=== PATIENT | male | born 1945 | race Caucasian/White ===

== ENCOUNTER 2020-11-24 22:59 | Inpatient (IN) | payer OTHER, SELFPAY ==
[~2020-11-24] VITALS: Ht 165.1 cm; Wt 40.8 kg
[2020-11-24 22:59] VITALS: BP_SYST 143
[~2020-11-24 22:59] MED LIST: FINA5TAB3 PO; LEVO500T89 PO; TAMS-11 PO
--- NOTE | 2020-11-24 23:01 | NUR ---
Patient to ER bed 7 to gown for evaluation. Side rails up.
--- NOTE | 2020-11-24 23:02 | NUR ---
Patient BIB by family from home. C/O fall x today. Per patient's family reported, patient fell off the bed, denies head injury, no LOC, A/O,X4, skin pale, dry, no wound, place patient on chemical plant technical director and pulse ox, and STAT EKG at bedside.
--- NOTE | 2020-11-24 23:02 | NUR ---
MAVERICK Bull at bedside examining patient.
--- NOTE | 2020-11-24 23:06 | NUR ---
Called patient's family, unable to provide home medication and history.
[2020-11-24] MEDS ORDERED: LR 1,000 ML IV ONE (23:15)
[2020-11-24 23:39] LABS: BASOPHILS # (AUTO) 0.1 K/uL (0.0-0.2); BASOPHILS % (AUTO) 0.7 % (0.0-2.0); HEMOGLOBIN 14.6 g/dL (14.0-18.0); LYMPHOCYTES # (AUTO) 0.4 K/uL (1.0-5.5); LYMPHOCYTES % (AUTO) 4.3 % (20.5-51.5); MEAN CORPUSCULAR HEMOGLOBIN 29 pg (27-31); MEAN CORPUSCULAR HGB CONC 32 % (32-36); MEAN CORPUSCULAR VOLUME 91 fL (79.0-98.0); MONOCYTES # (AUTO) 0.4 K/uL (0.0-1.0); MONOCYTES % (AUTO) 3.8 % (1.7-9.3); NEUTROPHILS # (AUTO) 8.9 K/uL (1.8-7.7); NEUTROPHILS % (AUTO) 91.2 % (40.0-70.0); PLATELET COUNT (AUTO) 374 K/uL (130-430); RED BLOOD CELL COUNT(AUTO) 4.97 MIL/uL (4.2-6.2); RED CELL DISTRIBUTION WIDTH 15.5 % (9.0-15.0); WHITE BLOOD COUNT (AUTO) 9.7 K/uL (4.8-10.8)
--- NOTE | 2020-11-24 23:40 | NUR ---
D/C old valle cath # 16 FR Valle catheter with use of sterile technique. Immediate return of 150 cc Joanne, cloudy urine noted. Bedside drainage bag placed below level of bladder. Urine sample collected and sent to lab. Pt tolerated procedure well. Patient arrived with valle in place, changed due to standard of practice prior to admission. Patient unable to toilet self.
--- NOTE | 2020-11-24 23:48 | NUR ---
CXR at bedside.
[2020-11-24 23:50] LABS: ANION GAP 17 (5-15); CHLORIDE 111 mmol/L (98-107); CREATININE 1.91 mg/dL (0.55-1.30); GLUCOSE 128 mg/dL (70-99); POTASSIUM 3.9 mmol/L (3.5-5.1); SODIUM SERUM 154 mmol/L (136-145); UREA NITROGEN, BLOOD 82 mg/dL (8-21)
[2020-11-24 23:59] LABS: ALANINE AMINOTRANSFERASE 15 U/L (12-78); ASPARTATE AMINOTRANSFERASE 25 U/L (10-37); BILIRUBIN,DIRECT 0.4 mg/dL (0.0-0.3); LIPASE 208 U/L (73-393); TOTAL BILIRUBIN 0.9 mg/dL (0.0-1.0)
[2020-11-25 00:03] LABS: CALCIUM 12.1 mg/dL (8.4-11.0)
--- NOTE | 2020-11-25 00:03 | NUR ---
Patient transported to radiology via gurney, accompanied by RT and EMT.
[2020-11-25 00:16] LABS: PROTHROMBIN TIME 10.4 SECS (9.5-12.5)
[2020-11-25 00:24] LABS: FREE T4 (FREE THYROXINE) 1.5 ng/dl (0.8-1.5); THYROID STIMULATING HORMONE 2.81 uIu/mL (0.36-3.74)
--- NOTE | 2020-11-25 00:35 | NUR ---
Returned from radiology via gurney with, RT and EMT.
--- NOTE | 2020-11-25 00:37 | NUR ---
ER Dr. Woodruff at bedside examining patient.
--- NOTE | 2020-11-25 00:42 | NUR ---
Empty urine bag, urine 700 ML/ Joanne, cloudy.
--- NOTE | 2020-11-25 00:50 | NUR ---
Swabs COVID-19 and send to lab.
[2020-11-25 00:52] LABS: BILIRUBIN,URINE 1+ (NEGATIVE); BLOOD, URINE 3+ (NEGATIVE); COLOR,URINE YELLOW (YELLOW); GLUCOSE,URINE NEGATIVE (NEGATIVE); KETONES,URINE 1+ (NEGATIVE); LEUKOCYTE ESTERASE ,URINE 2+ (NEGATIVE); NITRITE, URINE NEGATIVE (NEGATIVE); PROTEIN URINE 1+ (NEGATIVE); UROBILINOGEN,URINE 0.2 (0.2-1.0)
[2020-11-25 01:01] LABS: CLARITY/URINE HAZY (CLEAR)
[2020-11-25] MEDS ORDERED: D5/0.45 NS 1,000 ML IV SCH (01:30)
[2020-11-25] MEDS ORDERED: cefTRIAXone 1 GM IVPB PREMIX 50 ML IV ONE (01:45)
[2020-11-25] MEDS ORDERED: DILTIAZEM HCL 25 MG/5 ML VIAL IVP ONE (01:45)
[2020-11-25 01:46] LABS: BACTERIA,URINE MODERATE /HPF (None Seen); RBC,URINE 20-50 /HPF (0-3); WBC,URINE 20-50 /HPF (0-3)
--- NOTE | 2020-11-25 01:58 | NUR ---
Patient will be admitted to care of Dr. Segal. Admitted to TELE unit. Will go to room 132C. Belongings list completed. Complete and up to date summary report printed. SBAR report to be given at bedside with opportunity for questions.
--- NOTE | 2020-11-25 02:23 | NUR ---
ADMISSION NOTE Received patient from ER via elva, received report from ALISSA Vail. Patient admitted with diagnosis of Renal failure and uti. Patient oriented to hospital routine, call light, toileting and safety-patient verbalized understanding.
[2020-11-25 03:01] VITALS: BP_SYST 127
--- NOTE | 2020-11-25 03:26 | NUR ---
RN ROUNDS Patient awake, on room air, vitals stable, afib on tele monitor, denies any pain at this time, IV line to left forearm intact and patent, started on IV fluids, hygiene care provided, wound pictures taken, patient given hs snack, tolerated well, valle catheter secured and to gravity, draining cloudy, yellow urine, repositioned and turned with pillow support, fall precautions in place.
--- NOTE | 2020-11-25 06:18 | NUR ---
RN ROUNDS PATIENT AWAKE, NO FACIAL GRIMACING NOTED FOR PAIN, IV LINE REMAINS INTACT AND PATENT, IVF CONTINUES TO INFUSE. AUSTIN CATHETER SECURED AND TO GRAVITY, PATIENT REPOSITIONED WITH PILLOW SUPPORT, CALL LIGHT WITHIN REACH, FALL AND SAFETY MEASURES MAINTAINED THROUGH OUT THE SHIFT.
--- NOTE | 2020-11-25 07:50 | NUR ---
Opening note Patient is sitting up in bed a&O x1, reorient on place and event. IV is infusing, no signs or symptoms of infiltration. Attempted to educate on plan of care, patient did not verbalize understanding, will continue to reinforce teaching. Brown is draining by gravity, secured, clean dry and intact. Bed is in lowest position, call light within reach, fall and aspiration precautions are in place. Will continue to monitor.
[2020-11-25 08:15] VITALS: BP_SYST 109
--- NOTE | 2020-11-25 08:19 | NUR ---
RN note Spoke to Dr. Segal regarding cardiac consults. MD ordered cardiac consult with Dr. Alondra Segal. Will place order and follow up.
[2020-11-25] MEDS ORDERED: HYDROcodone/ACETAMIN 5-325 MG TAB (NORCO/ VICODIN) PO PRN (10:45)
[2020-11-25] MEDS ORDERED: ONDANSETRON HCL 4 MG/2 ML VIAL IVP PRN (10:45)
[2020-11-25] MEDS ORDERED: ACETAMINOPHEN 325 MG TABLET PO PRN (10:45)
[2020-11-25] MEDS ORDERED: HYDROcodone/ACETAMIN 10-325 MG TAB PO PRN (10:45)
[2020-11-25] MEDS ORDERED: NALOXONE HCL 0.4 MG/ML AMP (NARCAN) IVP PRN ×2 (10:45)
[2020-11-25] MEDS ORDERED: LORazepam 2 MG/ML VIAL IVP PRN (10:45)
[2020-11-25] MEDS ORDERED: TAMSULOSIN HCL 0.4 MG CAP PO ONE (11:00)
[2020-11-25] MEDS ORDERED: FINASTERIDE 5 MG TABLET (PROSCAR) PO ONE (11:00)
--- NOTE | 2020-11-25 12:01 | NUR ---
LORIN notes: ROOM SERVICE SUPERVISOR was referred by LISSETH to see patient for DCP. ROOM SERVICE SUPERVISOR phoned pt's daughter, Portia @ [phone]. Per Portia, pt is a 75 y/o male who came in for a fall. Portia stated patient lives between her two daughters, Portia and Kaylie. Pt's , who is also sick lives with their son, Mitchell. Pt is independent with his ADL's and at times utilizes a walker to ambulate. Per Portia, pt "walks slow" and stated that in the last 6 months, pt's appetite has decreased. Per Portia, pt does not have any history of mental health and hx of ETOH. Per Portia, pt receives SSI of $1200/month and Portia takes care of the finances and no other resources received. If patient discharges to SNF or , the family does not have a preference. ROOM SERVICE SUPERVISOR emailed [facility] offices (for calfresh, etc) and [facility] resources to [email or web address] Addendum: 11/25/20 at 1417 by Ronald Wilkes MSW ROOM SERVICE SUPERVISOR received a referral from to see patient for FTT/APS. ROOM SERVICE SUPERVISOR phoned Alie regarding the referral who stated that the patient came in via ED in a poor condition. Pt appeared to have not showered and "dirty". SS informed Alie MAXWELL that STEPHANIE RN should have reported APS. SS had a conversation with pt's daughter Portia earlier, SS does not feel that there was signs of neglect or abuse that might warrant an APS report. Elizabeth CM updated.
--- NOTE | 2020-11-25 12:10 | NUR ---
Nutrition Update Feng Scale 16 noted. Pt admitted for renal failure/UTI. Diet: renal BMI: 16.5 kg/m2 RD to follow per nutrition care standards.
[2020-11-25] MEDS: D5/0.45 NS 1,000 ML IV SCH ×2 (12:11→23:53)
[2020-11-25 13:16] VITALS: BP_SYST 101
--- NOTE | 2020-11-25 13:30 | NUR ---
social service late entry due to pt's care received call from ady group social worker regarding social service consult. informed ady that reported by ALISSA SOTO rn night nurse during morning report to this RN/gracy RN that pt came in poor condition to ER . pt appeared dirty/not showered as per night ALISSA SOTO.mental health social worker ADY informed.group social worker to follow up.
--- NOTE | 2020-11-25 15:00 | NUR ---
CONSULTATION PAGE CALLED CONSULT FOR DR ESQUEDA, COVERING IS DR SLADE {BOONE) AND ALFREDO HUMPHREY CALLED CONSULT FOR DR CANDY EVANS (BIANCA) AND ALFREDO SORIANO
[2020-11-25 16:20] VITALS: BP_SYST 100
--- NOTE | 2020-11-25 19:00 | NUR ---
Closing note Patient is sitting up in bed a&O x3 easily reoriented. IV is infusing, no signs or symptoms of infiltration. All needs were met. Brown is draining by gravity, secured, clean dry and intact. Bed is in lowest position, call light within reach, fall and aspiration precautions are in place. Will endorse report to warehouse shift supervisor.
--- NOTE | 2020-11-25 19:15 | NUR ---
REPORT RECEIVED FROM DAY SHIFT NURSE.
[2020-11-25 20:00] VITALS: BP_SYST 134
--- NOTE | 2020-11-25 23:10 | NUR ---
IV SITE IN LFA NOTED TO BE INFILTRATED AND THE ANGIOCATH WAS REMOVED INTACT. PRESSURE DRESSING WAS APPLIED TO THE SITE. NEW IN LINE WAS STARTED IN LFA WITH ANGIOCATH 22G.
[2020-11-26 00:26] VITALS: BP_SYST 94
[2020-11-26] MEDS: cefTRIAXone 1 GM IVPB PREMIX 50 ML IV SCH (02:08)
[2020-11-26 07:05] LABS: BASOPHILS % (AUTO) 0.1 % (0.0-2.0); EOSINOPHILS # (AUTO) 0.1 K/uL (0.0-0.4); EOSINOPHILS % (AUTO) 0.7 % (0.0-4.0); HEMATOCRIT 33.1 % (36-54); HEMOGLOBIN 11.1 g/dL (14.0-18.0); LYMPHOCYTES # (AUTO) 0.7 K/uL (1.0-5.5); LYMPHOCYTES % (AUTO) 8.5 % (20.5-51.5); MEAN CORPUSCULAR HEMOGLOBIN 30 pg (27-31); MEAN CORPUSCULAR HGB CONC 33 % (32-36); MEAN CORPUSCULAR VOLUME 89 fL (79.0-98.0); MONOCYTES # (AUTO) 0.4 K/uL (0.0-1.0); MONOCYTES % (AUTO) 5.6 % (1.7-9.3); NEUTROPHILS # (AUTO) 6.8 K/uL (1.8-7.7); NEUTROPHILS % (AUTO) 85.1 % (40.0-70.0); PLATELET COUNT (AUTO) 224 K/uL (130-430); RED BLOOD CELL COUNT(AUTO) 3.71 MIL/uL (4.2-6.2); RED CELL DISTRIBUTION WIDTH 15.3 % (9.0-15.0)
[2020-11-26 07:37] LABS: ALANINE AMINOTRANSFERASE 11 U/L (12-78); ANION GAP 6 (5-15); ASPARTATE AMINOTRANSFERASE 19 U/L (10-37); CALCIUM 10.2 mg/dL (8.4-11.0); CHLORIDE 110 mmol/L (98-107); CREATININE 0.99 mg/dL (0.55-1.30); GLUCOSE 95 mg/dL (70-99); PHOSPHORUS 1.1 mg/dL (2.7-4.5); POTASSIUM 3.2 mmol/L (3.5-5.1); SODIUM SERUM 146 mmol/L (136-145); TOTAL BILIRUBIN 0.2 mg/dL (0.0-1.0); UREA NITROGEN, BLOOD 48 mg/dL (8-21)
--- NOTE | 2020-11-26 07:50 | NUR ---
OPENING NOTES: PATIENT SITTING IN BED WHILE EATING BREAKFAST. ALERT, AWAKE,AND ORIENTED X 3. NO SIGNS OF ACUTE DISTRESS NOTED. IV PATENT WITH NO SIGNS OF INFILTRATION. AUSTIN CATHETER DRAINING BY GRAVITY. SAFETY AND FALL PRECAUTION REINFORCED. CALL LIGHT WITHIN REACH.
[2020-11-26 08:02] VITALS: BP_SYST 138
[2020-11-26 08:12] LABS: C-REACTIVE PROTEIN QUANT 2.6 mg/dL (0-0.5)
[2020-11-26] MEDS: FINASTERIDE 5 MG TABLET (PROSCAR) PO SCH (09:17)
[2020-11-26] MEDS: TAMSULOSIN HCL 0.4 MG CAP PO SCH (09:17)
[2020-11-26] MEDS: D5/0.45 NS 1,000 ML IV SCH ×2 (09:23→16:45)
[2020-11-26] MEDS ORDERED: NA PHOS 30 MM in NS 250 ML IV ONE ×2 (09:30→14:00)
[2020-11-26] MEDS ORDERED: MAGNESIUM SULFATE IN WATER 100 ML IV ONE (09:30)
[2020-11-26 09:38] LABS: ERYTHROCYTE SEDIMENTATION RATE 25 MM/HR (0-15)
[2020-11-26 11:30] VITALS: BP_SYST 151
--- NOTE | 2020-11-26 11:30 | NUR ---
PATIENT REFUSED TREATMENT DUE TO NOT FEELING WELL. PLAN: ATTEMPT TOMORROW.
[2020-11-26 15:34] VITALS: BP_SYST 142
--- NOTE | 2020-11-26 16:04 | NUR ---
WOUND EVALUATION: Wound Consult received from Dr. Nabor Segal. Thank you, Dr. Segal, for the consult. Patient received in a Norwood Bed with an Atmos-Air 9000 mattress, awake, alert, confused. Patient is able to turn in bed slowly with some assist. Feng Score is a 12. Past Medical History: Fall or Syncope, Urinary Tract Infection, Anemia, Leukocytosis, Hypokalemia, Hypoalbuminemia, severe Protein-Calorie Malnutrition, Renal Failure with unknown Renal baseline. Patient admitted to the emergency department and work-up found Atrial Fibrillation with rapid ventricular rate, Hyponatremia, Acute Renal Insufficiency, failure to thrive, Cachexia. Recent Labs: WBC 9.7, RBC 4.97, hemoglobin 14.6, hematocrit 45.0, sodium 154, chloride 111, BUN 82, creatinine 1.91, glucose 128, POC glucose 119, calcium 12.1, albumin 3.0, PTT 24.6. Microbiology: Blood culture results x2 in progress. Urine culture results in progress. Intrinsic factors that delay wound healing: COPD, Hypoalbuminemia. Extrinsic factors that delay wound healing: Decreased mobility. Wound Assessment: 1. Right Upper Outer Sacral area: Unstageable pressure ulcer, present on admission. Wound bed has 90% black tissue, 10% red tissue. No odor, scant yellow sanguineous drainage. Surrounding tissue has blanchable red erythema. Wound measures 2.9 cm x 3.0 cm. Recommend: Cleanse wound with normal saline. Apply moisture barrier cream to periwound. Apply Venelex ointment to wound bed. Cover site with foam dressing. Perform wound care daily, and as needed for dressing soiling or dislodgment. 2. Right Buttock near Ischium: Dry scab, present on admission. Scab fell off during site cleansing, revealing pink scar tissue. Recommend: Cleanse site with mild soap and water. Apply moisture barrier cream to site qid and prn for soiling. 3. Left Buttock near Ischium: Stage II pressure ulcer, present on admission. Wound bed has 100% red tissue. No odor, no drainage. Periwound intact. Wound measures 0.7 cm x 0.5 cm. Recommend: Cleanse wound with normal saline. Apply moisture barrier cream to periwound. Apply Venelex ointment to wound bed. Cover site with foam dressing. Perform wound care daily, and as needed for dressing soiling or dislodgment. 4. Coccygeal area: Scar tissue with blanchable redness, present on admission. Skin tear present on left side with 100% pink tissue. No odor, no drainage. Skin tear measures 0.9 cm x 0.2 cm. Recommend: Cleanse skin tear and surrounding tissues with normal saline. Apply moisture barrier cream to involved areas. Apply Venelex ointment to skin tear bed. Cover site with Sacral foam dressing. Perform site care daily, and as needed for dressing soiling or dislodgment. Do not allow patient to lie flat on his back at any time. Offload site at all times. 5. Right Lateral Hip: Non-blanchable red erythema, present on admission. Recommend: Cover site with foam dressing. Offload site at all times. Also recommend: Reposition patient side to side only every 2 hours with pillow support and off-load pressure areas with pillows for pressure re-distribution. Offload, elevate and float bilateral heels with pillows. Perform skin care and monitor skin integrity Q shift. Use moisture barrier cream on buttocks and other moisture susceptible areas QID and as needed for soiling. Place patient on a low air loss mattress. Addendum: 11/26/20 at 1710 by Jono Arnett RN Addendum: Recent labs should read: WBC 8.0, RBC 3.71, hemoglobin 11.1, hematocrit 33.1, ESR 25, sodium 146, potassium 3.2, chloride 110, BUN 48, creatinine 0.99, glucose 95, phosphorus 1.1, magnesium 1.2, ALT 11, serum total protein 5.4, albumin 2.0.
--- NOTE | 2020-11-26 16:15 | NUR ---
WOUND CARE: WOUND CARE NURSE ASSESSED THE WOUND AND PRIMARY RN DID WOUND CARE.
--- NOTE | 2020-11-26 16:19 | NUR ---
Dietitian Recommendations * Recommend renal diet w/ Nepro BID, Eldon BID (supplements provide an additional ~1040 kcal/day, 43 gm protein/day) * Encourage increase PO intakes * Consider appetite stimulant XAVIER DUTTA Please refer to Nutrition Assessment for details. Addendum: 11/26/20 at [address] Amended: Links added.
[2020-11-26] MEDS ORDERED: BALSAM PERU/CASTOR OIL 60 GM OINT...G. TP ONE (18:00)
--- NOTE | 2020-11-26 18:15 | NUR ---
SPOKE TO MD: SPOKE TO DR. Unique CABRAL AND INFORMED HIM THAT THE PT'S DAUGHTER ELYSSA WANTS TO BE CALLED FOR PATIENT'S UPDATES.
--- NOTE | 2020-11-26 18:25 | NUR ---
CLOSING NOTES: PATIENT SITTING IN BED WHILE EATING DINNER. BREATHING EVEN AND NON LABORED TO ROOM AIR. IV PATENT WITH NO SIGNS OF INFILTRATION. AUSTIN CATHETER IN PLACE AND DRAINING BY GRAVITY. SAFETY AND FALL PRECAUTION REINFORCED. BED LOCKED, ALARM ON AND IN LOWEST POSITION. CALL LIGHT WITHIN REACH. WILL CONTINUE MONITOR PATIENT UNTIL ENDORSE TO DEVELOPMENTAL EDUCATION INSTRUCTOR RN.
--- NOTE | 2020-11-26 18:36 | NUR ---
NEW ORDER: DR. CABRAL CALLED WITH ORDER ECHOCARDIOGRAM IN AM.
--- NOTE | 2020-11-26 19:30 | NUR ---
OPENING NOTES: Received report from dayshift nurse. Patient is on Tele. He is resting in bed, alert and oriented and appears to be in stable condition. Patient has 22 g IV on LFA with dry and intact dressing, infusing well. Brown noted with yellow urine, draining to gravity. Patient is on room air with symmetric unlabored breathing pattern. Ensured all safety precautions. Bed is locked and in the lowest position with alarm on and call light within reach.
[2020-11-26 20:00] VITALS: BP_SYST 117
--- NOTE | 2020-11-26 23:03 | NUR ---
RN ROUNDS: Patient is laying in bed and is not having any concerns at this time. Patient did not eat his dinner but states will have some fruit. Fruit was provided for patient from pantry. He tolerated well.
[2020-11-27 00:29] VITALS: BP_SYST 122
[2020-11-27] MEDS: D5/0.45 NS 1,000 ML IV SCH ×3 (02:38→23:06)
[2020-11-27] MEDS: cefTRIAXone 1 GM IVPB PREMIX 50 ML IV SCH (02:39)
[2020-11-27 03:07] LABS: FREE PSA 0.47 ng/mL
--- NOTE | 2020-11-27 05:03 | NUR ---
RN ROUNDS: Patient is laying in bed and appears to be asleep. He is not exhibiting any s/s of distress or discomfort. Will continue to monitor.
[2020-11-27 05:08] LABS: % FREE PSA 11.5 % (.)
--- NOTE | 2020-11-27 06:57 | NUR ---
CLOSING NOTES: Patient is resting in bed, alert and oriented and appears to be in stable condition. He remains on tele and has 22 g IV on LFA with dry and intact dressing, infusing well. Brown with yellow urine, draining to gravity. Patient is on room air with symmetric unlabored breathing pattern. Ensured all safety precautions. Bed is locked and in the lowest position with alarm on and call light within reach. All needs were met throughout shift. Will endorse to dayshift nurse.
[2020-11-27 06:58] LABS: BASOPHILS % (AUTO) 0.1 % (0.0-2.0); EOSINOPHILS # (AUTO) 0.1 K/uL (0.0-0.4); EOSINOPHILS % (AUTO) 1.6 % (0.0-4.0); HEMATOCRIT 31.6 % (36-54); HEMOGLOBIN 10.6 g/dL (14.0-18.0); LYMPHOCYTES # (AUTO) 0.6 K/uL (1.0-5.5); LYMPHOCYTES % (AUTO) 9.2 % (20.5-51.5); MEAN CORPUSCULAR HEMOGLOBIN 30 pg (27-31); MEAN CORPUSCULAR HGB CONC 34 % (32-36); MEAN CORPUSCULAR VOLUME 89 fL (79.0-98.0); MONOCYTES # (AUTO) 0.3 K/uL (0.0-1.0); NEUTROPHILS # (AUTO) 5.6 K/uL (1.8-7.7); NEUTROPHILS % (AUTO) 84.1 % (40.0-70.0); PLATELET COUNT (AUTO) 186 K/uL (130-430); RED BLOOD CELL COUNT(AUTO) 3.57 MIL/uL (4.2-6.2); RED CELL DISTRIBUTION WIDTH 15.3 % (9.0-15.0); WHITE BLOOD COUNT (AUTO) 6.6 K/uL (4.8-10.8)
--- NOTE | 2020-11-27 07:30 | NUR ---
Initial note: Patient is awake, alert, oriented x4n denies any pain or discomfort. He is on D5 1/2 NS IVF at 100 ml/hr, infusing well via left forearm IV # 22G, no sign of infiltration noted. Brown catheter is in place with clear-yellow urine out put draining well via gravity. Call light within reach, bed alarm on. Will continue monitor.
[2020-11-27 07:40] LABS: ALANINE AMINOTRANSFERASE 10 U/L (12-78); ALBUMIN 1.9 g/dL (3.4-4.8); ANION GAP 5 (5-15); ASPARTATE AMINOTRANSFERASE 12 U/L (10-37); CHLORIDE 109 mmol/L (98-107); CREATININE 0.78 mg/dL (0.55-1.30); GLUCOSE 98 mg/dL (70-99); PHOSPHORUS 2.2 mg/dL (2.7-4.5); SODIUM SERUM 145 mmol/L (136-145); TOTAL BILIRUBIN 0.3 mg/dL (0.0-1.0); UREA NITROGEN, BLOOD 31 mg/dL (8-21)
[2020-11-27 08:00] VITALS: BP_SYST 97
[2020-11-27] MEDS: FINASTERIDE 5 MG TABLET (PROSCAR) PO SCH (08:26)
[2020-11-27] MEDS: TAMSULOSIN HCL 0.4 MG CAP PO SCH (08:26)
[2020-11-27] MEDS: BALSAM PERU/CASTOR OIL 60 GM OINT...G. TP SCH (08:37)
[2020-11-27 09:09] LABS: POTASSIUM 2.6 mmol/L (3.5-5.1)
--- NOTE | 2020-11-27 09:15 | NUR ---
MD round with Critical lab result: Nabor Argueta makes round and has new orders. Also inform him that Potassium level=2.6 this morning, then he has ordered for K-rider 40 mEq IV x1 dose.
--- NOTE | 2020-11-27 09:36 | NUR ---
HIGH ALERT NOTE: Called Nabor Argueta back at [phone] identified within the medical roster to verify physician authenticity.
[2020-11-27] MEDS ORDERED: POTASSIUM CHLORIDE 40 MEQ in NS 250 ML IV ONE (10:00)
--- NOTE | 2020-11-27 10:00 | NUR ---
DC Brown catheter as MD ordered. Will monitor voiding.
[2020-11-27 11:59] VITALS: BP_SYST 159
[2020-11-27 12:00] VITALS: BP_SYST 107
--- NOTE | 2020-11-27 13:48 | NUR ---
PT: Patient is ambulating in the room with PT.
--- NOTE | 2020-11-27 15:54 | NUR ---
Give endorsement to Malini for continuing cares.
[2020-11-27 16:00] VITALS: BP_SYST 101
--- NOTE | 2020-11-27 16:00 | NUR ---
Note Received report from previous RN for continuation of care.
--- NOTE | 2020-11-27 18:40 | NUR ---
Note Pt sitting up in bed eating his dinner. No SOB/resp distress or pain/discomfort noted all shift. Pt was checked on q1' and PRN all shift for needs and care. Pt's IV in left forearm intact and patent infusing IVF's well. Pt refuses to get OOB and stand to try and void at this time. Pt stable. Pt's bed in low position and bed alarm on all shift. Pt next to nurses' station for close observation. Call light within reach.
--- NOTE | 2020-11-27 19:30 | NUR ---
initial notes: pt is awake, alert orient x 4. finish eating dinner, no pain, n o sob, not distress. ivf infusing well. vital sign are stable. skin dressings are intact and clean. pt is incontinent of urine. change pt chux, reposition, pt post void bladder scan >999cc. according to am rn. no urine out put since valle catheter discontinue. offer urinal to pt for trail voiding again. explain to pt plan of care, he verbalized understanding. denise light in reach, side rails up low bed position and alarm. will follow-up.
[2020-11-27 19:32] VITALS: BP_SYST 112
--- NOTE | 2020-11-27 20:28 | NUR ---
page dr. afshin matos- spoke to md, report that pt is retaining urine of more than 999cc according to bladder scan. md order to put back valle and urology consult dr. ceja.
--- NOTE | 2020-11-27 21:43 | NUR ---
reinsert valle catheter, little resistance encounter, clear urine return, no pain, pt tolerate well. done aseptically.
--- NOTE | 2020-11-28 00:15 | NUR ---
pt is sleeping, wakes up. no pain, not distress, stablevital sign. needs attended, valle catheter draining well to clear urine. will follow up.
[2020-11-28 00:27] VITALS: BP_SYST 100
[2020-11-28] MEDS: cefTRIAXone 1 GM IVPB PREMIX 50 ML IV SCH (01:54)
--- NOTE | 2020-11-28 07:00 | NUR ---
closing: pt is resting, no sign of pain, not distress, ivf infusing well. valle catheter draining well. needs attended the whole shift. call light in reach. sbar reporting given to am rn.
--- NOTE | 2020-11-28 07:30 | NUR ---
CONSULT UROLOGY URINE RETENTION MICHELLE SINGH [phone] DR HOLCOMB CALLED BACK WILL SEE PATIENT TODAY
--- NOTE | 2020-11-28 07:30 | NUR ---
OPENING NOTES PT AWAKE, ALERT, AND ORIENTED X4. NONLABORED BREATHING NOTED ON ROOM AIR, TOLERATING WELL. IV LINE INTACT AND PATENT, NO SIGNS OF INFILTRATION NOTED, FLUIDS RUNNING ORDERED. SCDS ON AND IN PLACE. NO ACUTE DISTRESS NOTED ALL NEEDS MET. CALL LIGHT IN REACH FALL AND ASPIRATION PRECAUTIONS IN PLACE.
[2020-11-28 08:00] VITALS: BP_SYST 102
[2020-11-28 08:03] LABS: BASOPHILS # (AUTO) 0.1 K/uL (0.0-0.2); BASOPHILS % (AUTO) 1.1 % (0.0-2.0); EOSINOPHILS # (AUTO) 0.2 K/uL (0.0-0.4); EOSINOPHILS % (AUTO) 2.5 % (0.0-4.0); HEMOGLOBIN 10.2 g/dL (14.0-18.0); LYMPHOCYTES # (AUTO) 0.5 K/uL (1.0-5.5); LYMPHOCYTES % (AUTO) 5.9 % (20.5-51.5); MEAN CORPUSCULAR HEMOGLOBIN 30 pg (27-31); MEAN CORPUSCULAR HGB CONC 33 % (32-36); MEAN CORPUSCULAR VOLUME 90 fL (79.0-98.0); MONOCYTES # (AUTO) 0.3 K/uL (0.0-1.0); NEUTROPHILS # (AUTO) 6.7 K/uL (1.8-7.7); NEUTROPHILS % (AUTO) 86.5 % (40.0-70.0); PLATELET COUNT (AUTO) 164 K/uL (130-430); RED BLOOD CELL COUNT(AUTO) 3.46 MIL/uL (4.2-6.2); WHITE BLOOD COUNT (AUTO) 7.8 K/uL (4.8-10.8)
[2020-11-28 08:37] LABS: ANION GAP 5 (5-15); CALCIUM 8.1 mg/dL (8.4-11.0); CHLORIDE 110 mmol/L (98-107); CREATININE 0.73 mg/dL (0.55-1.30); GLUCOSE 90 mg/dL (70-99); SODIUM SERUM 144 mmol/L (136-145); UREA NITROGEN, BLOOD 32 mg/dL (8-21)
[2020-11-28] MEDS: FINASTERIDE 5 MG TABLET (PROSCAR) PO SCH (08:38)
[2020-11-28] MEDS: BALSAM PERU/CASTOR OIL 60 GM OINT...G. TP SCH (08:38)
[2020-11-28] MEDS: TAMSULOSIN HCL 0.4 MG CAP PO SCH (08:38)
[2020-11-28] MEDS: D5/0.45 NS 1,000 ML IV SCH (08:38)
--- NOTE | 2020-11-28 08:42 | NUR ---
ROUTINE MEDS ADMINISTERED ORDERED PER MD, EDUCATION GIVEN, TOLERATED WELL.
[2020-11-28 09:01] LABS: ERYTHROCYTE SEDIMENTATION RATE 18 MM/HR (0-15); PHOSPHORUS 0.7 mg/dL (2.7-4.5)
[2020-11-28 09:24] LABS: C-REACTIVE PROTEIN QUANT 1.7 mg/dL (0-0.5)
[2020-11-28] MEDS ORDERED: MAGNESIUM SULFATE/D5W 100 ML IV ONE (09:30)
--- NOTE | 2020-11-28 09:44 | NUR ---
HIGH ALERT NOTE: Called Dr. Weinstein back at [phone] identified within the medical roster to verify physician authenticity.
[2020-11-28] MEDS: KCL 40 mEq in D5W 1000 mL 1,000 ML IV SCH (09:53)
[2020-11-28] MEDS ORDERED: K PHOS 30 MM in NS 250 ML IV ONE ×2 (11:00→12:15)
[2020-11-28 12:00] VITALS: BP_SYST 114
[2020-11-28] MEDS ORDERED: MAGNESIUM SULFATE 50 ML IV ONE (12:15)
--- NOTE | 2020-11-28 14:00 | NUR ---
transfer of care received sbar from ALISSA Avery, patient in bed, respirations even, non labored, bed in low and locked position call light within reach, bed alarm on Addendum: 11/28/20 at 1716 by Michelle Amador RN time should be 1600
[2020-11-28 16:00] VITALS: BP_SYST 113
--- NOTE | 2020-11-28 16:04 | NUR ---
endorsed care to hayder monsivais
[2020-11-28] MEDS: K PHOS 30 MM in NS 250 ML IV ONE ×2 (18:26→19:17)
--- NOTE | 2020-11-28 19:25 | NUR ---
Opening note Received report from ALISSA Martinez. Patient is awake, resting in KENNETH mattress, no distress and non labored breathing on room air. IV is infusing via IV to LFA. Presently he denies pain. Bed is locked in lowest position, bed alarm on and call light w/in reach. Updated board.
--- NOTE | 2020-11-28 19:27 | NUR ---
closing note provided sbar to night RN, patient in bed, respirations even, non labored, bed in low and locked position, call light within reach, bed alarm on, ivf's running as ordered, valle draining to gravity endorsed care to night RN
[2020-11-28 20:00] VITALS: BP_SYST 108
[2020-11-28 20:17] LABS: PROSTATE SPECIFIC AG TOTAL 4.1 ng/mL (0.0-4.0)
[2020-11-29] VITALS (7 sets, daily range): BP systolic 99–116
[2020-11-29] MEDS: KCL 40 mEq in D5W 1000 mL 1,000 ML IV SCH ×4 (00:26→21:21)
[2020-11-29] MEDS: cefTRIAXone 1 GM IVPB PREMIX 50 ML IV SCH (01:57)
--- NOTE | 2020-11-29 02:05 | NUR ---
Dr. Sobeida Clements rounds Dr. Sobeida Clements at bedside to see, f/u with patient. Dr. Sobeida Clements said he will DC IV Rocephin and start him on PO antibiotics.
[2020-11-29 06:31] LABS: BASOPHILS % (AUTO) 0.2 % (0.0-2.0); EOSINOPHILS # (AUTO) 0.2 K/uL (0.0-0.4); EOSINOPHILS % (AUTO) 1.9 % (0.0-4.0); HEMATOCRIT 31.7 % (36-54); HEMOGLOBIN 10.5 g/dL (14.0-18.0); LYMPHOCYTES # (AUTO) 0.8 K/uL (1.0-5.5); LYMPHOCYTES % (AUTO) 10.3 % (20.5-51.5); MEAN CORPUSCULAR HEMOGLOBIN 29 pg (27-31); MEAN CORPUSCULAR HGB CONC 33 % (32-36); MEAN CORPUSCULAR VOLUME 89 fL (79.0-98.0); MONOCYTES # (AUTO) 0.5 K/uL (0.0-1.0); MONOCYTES % (AUTO) 6.1 % (1.7-9.3); NEUTROPHILS # (AUTO) 6.7 K/uL (1.8-7.7); NEUTROPHILS % (AUTO) 81.5 % (40.0-70.0); PLATELET COUNT (AUTO) 173 K/uL (130-430); RED BLOOD CELL COUNT(AUTO) 3.56 MIL/uL (4.2-6.2); RED CELL DISTRIBUTION WIDTH 15.5 % (9.0-15.0); WHITE BLOOD COUNT (AUTO) 8.2 K/uL (4.8-10.8)
--- NOTE | 2020-11-29 07:00 | NUR ---
Bedside commode assisted patient to BSC for BM, WHEEL OF FORTUNE DEALER assisted him back to bed
[2020-11-29 08:23] LABS: ANION GAP 6 (5-15); CALCIUM 8.2 mg/dL (8.4-11.0); CHLORIDE 110 mmol/L (98-107); CREATININE 0.72 mg/dL (0.55-1.30); GLUCOSE 93 mg/dL (70-99); POTASSIUM 3.5 mmol/L (3.5-5.1); SODIUM SERUM 144 mmol/L (136-145); TOTAL BILIRUBIN 0.1 mg/dL (0.0-1.0); UREA NITROGEN, BLOOD 28 mg/dL (8-21)
[2020-11-29 08:24] LABS: ALANINE AMINOTRANSFERASE 5 U/L (12-78); ALBUMIN 1.7 g/dL (3.4-4.8); ASPARTATE AMINOTRANSFERASE 9 U/L (10-37); PHOSPHORUS 2.8 mg/dL (2.7-4.5)
[2020-11-29 08:25] LABS: ERYTHROCYTE SEDIMENTATION RATE 23 MM/HR (0-15)
[2020-11-29] MEDS: TAMSULOSIN HCL 0.4 MG CAP PO SCH (08:28)
[2020-11-29] MEDS: BALSAM PERU/CASTOR OIL 60 GM OINT...G. TP SCH (08:28)
[2020-11-29] MEDS: FINASTERIDE 5 MG TABLET (PROSCAR) PO SCH (08:28)
--- NOTE | 2020-11-29 08:30 | NUR ---
OPENING NOTES PATIENT ALERT AWAKE X 4. RESPIRATION EVEN AND UNLABORED. ABDOMEN SOFT AND NON DISTENDED. VITALS SIGNS STABLE. AFEBRILE. HAS IV ACCESS ON THE LEFT FOREARM #22 WITH D5W + POTASSIUM 40 MEQ AT 100CC/HR INFUSING ON WELL. HAS BOTH ARMS ECCHYMOSES NOTED. SLIGHT COUGHING NOTED. NO DISTRESS NOR PAIN NOTED. BED LOW POSITION, ALARMED AND LOCKED. WILL CONTINUE TO MONITOR PATIENTS STATUS
[2020-11-29 09:40] LABS: C-REACTIVE PROTEIN QUANT 1.3 mg/dL (0-0.5)
[2020-11-29] MEDS: CIPROFLOXACIN HCL 500 MG TABLET PO SCH ×2 (12:25→21:21)
--- NOTE | 2020-11-29 15:07 | NUR ---
Nutrition F/U RD reviewed pt's current EMR record including diet Hx, physician notes, nursing notes, pertinent labs/meds/procedures, care trends, and care activity. Admission Dx: Renal failure, UTI PMH: renal Dz per EMR review Pt is s/p mechanical fall, also found w/ protein calorie malnutrition, FTT, and cachexia per physician notes SARS-CoV-2 Ag (Rapid) Negative 11/25 Current Diet Order/Nutrition Support: Renal w/ Nepro BID, Eldon BID x3 days Subjective Info: RD met w/ pt at bedside who reported that he has been eating fine without any complaints. Pt reported that he has been drinking Nepro ONS. Per RN, pt may transfer to another hospital for cardio procedure. Per EMR review, PO intake average of 60% x5 meals; no BM noted since 11/25; Feng scale: 14 -- per Surgical Scrub Tech note 11/26: 1. Right Upper Outer Sacral area: Unstageable pressure ulcer, present on admission. 2. Right Buttock near Ischium: Dry scab, present on admission. Scab fell off during site cleansing, revealing pink scar tissue. 3. Left Buttock near Ischium: Stage II pressure ulcer, present on admission. 4. Coccygeal area: Scar tissue with blanchable redness, present on admission. 5. Right Lateral Hip: Non-blanchable red erythema, present on admission. Pt is not yet meeting nutritional needs, however, appetite has improved since last RD visit. Pertinent Medications: KCl/D5%W at 100 ml/hr (408 kcal/day) Pertinent Labs: Na 144 WNL, K 3.5 WNL, BUN 28 H, CRP 1.3 H, ALB 1.7 L Ht: 5'5"/65" Wt: 84#/38 kg (11/26) New Wt: 90#/41 kg (11/27) -- note 6# wt gain within 3 days -- may be d/t fluid shifts a/w renal Dz Body Mass Index: 13.98 kg/m2 %IBW: 62 [place]/Adjusted Body Weight: IBW: 136#/62 kg Estimated Energy Expenditure (kcals/day) 5623-0920 kcal/day (25-30 kcal/kg IBW for gradual wt gain promotion) Estimated Protein Required (g/day) 74-93 gm/day (1.2-1.5 gm/kg IBW for gradual wt gain promotion) Estimated Fluid Required (l/day) 1.6-1.9 L/day (1 ml/kcal/day for maintenance) Problem/Etiology/Signs/Symptoms 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 *ongoing Expected Outcomes/Goals - Monitor appetite and PO intakes w/ goal of pt meeting at least 75% of estimated nutritional needs, labs trending WNL, normal GI function, and skin integrity/wt maintenance Dietitian Recommendations * Recommend continuing renal diet w/ Nepro BID, Eldon BID (supplements provide an additional ~1040 kcal/day, 43 gm protein/day) * Encourage increase PO intakes Follow Up Moderate Risk: F/U in 3-5 days
--- NOTE | 2020-11-29 15:13 | NUR ---
Dietitian Recommendations * Recommend continuing renal diet w/ Nepro BID, Eldon BID (supplements provide an additional ~1040 kcal/day, 43 gm protein/day) * Encourage increase PO intakes LP, RD Please refer to Nutrition F/U for details.
--- NOTE | 2020-11-29 15:38 | NUR ---
Calls placed to Mansi Santos at [facility] to arrange/authorize transfer to [facility] for pacemaker placement. Mansi Santos called back at 3:00PM-She stated Dr Infante will be the accepting MD at [facility]. She will call back with further information. Her phone # is [phone].
--- NOTE | 2020-11-29 17:00 | NUR ---
CASE MANAGEMENT AFTER HOURS . PLEASE FAXED [phone] THE RESULT OF RAPID NEGATIVE. THE [facility]AMED [facility] PHONE NUMBER [phone] ARRANGING FOR TRANSPORTATION THE AMBULANCE NAMED IS [facility] PHONE NUMBER [phone] AND THE AUTHORIZATION NUMBER IS [phone].
--- NOTE | 2020-11-29 18:19 | NUR ---
STILL STABLE. AT THIS TIME. AWAITING FOR BED AVAILABILITY AT [facility] FOR POSSIBLE PACEMAKER PLACEMENT.
--- NOTE | 2020-11-29 19:30 | NUR ---
OPENING NOTES RECEIVED REPORT FROM DAY SHIFT RN. PT RESTING IN BED, ALERT & ORIENTED X4. BREATHING EVEN AND UNLABORED TO ROOM AIR. NO SIGNS OF RESPIRATORY DISTRESS NOTED. IV ON LEFT FA 22G INTACT, IVF RUNNING ORDERED RATE. NO SIGNS OF INFILTRATION NOTED. AUSTIN CATHETER INTACT, DRAINING BY GRAVITY. CALL LIGHT WITHIN REACH. SIDE RAILS UP X3. BED ALARM ON, LOCKED IN LOWEST POSITION. SAFETY AND FALL PRECAUTIONS ARE IN PLACE. WILL CONTINUE TO MONITOR.
--- NOTE | 2020-11-29 22:47 | NUR ---
GIVEN REPORT TO SILVIA ([facility])
--- NOTE | 2020-11-29 22:50 | NUR ---
Received a call from Phyllis MONTANEZ: Received a call from Phyllis MONTANEZ and informed her that [facility] don't have available ACLS/RN to transport patient. She stated that we can call any ambulance to transport patient and to give the Authorization number that was on the notes.
--- NOTE | 2020-11-29 23:00 | NUR ---
GIVEN UPDATE TO ELYSSA (DAUGHTER) THAT PT IS TRANSFERRING TO [facility]. DAUGHTER MADE AWARE.
--- NOTE | 2020-11-29 23:07 | NUR ---
CALLED FOR [facility] TRANSFER [facility] DIALED: [phone] SPOKE TO:SPIKE CONFIRMED ACLS TRANSFER TO [facility] PROVIDED ETA OF AMBULANCE MARKETING DEVELOPMENT SPECIALIST. SPOKE TO SPIKE
--- NOTE | 2020-11-29 23:30 | NUR ---
GIVEN UPDATE TO TRISHA (THI) THAT [facility] THI MADE AWARE.
--- NOTE | 2020-11-30 00:28 | NUR ---
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 Exit Care provided. Patient verbalized understanding. Patient in stable condition, ID band removed. All belongings sent with patient.
== END 2020-11-30 01:23 | disposition short-term general hospital (02) | DRG 682 ==
LOC: SED 22:59 → STU 11-25 01:28 → SMU 11-27 09:19 → STU 11-28 14:37
PROVIDERS: ADMIT Preventive Medicine Preventive Medicine/Occupational Environmental Medicine; ATTEND Preventive Medicine Preventive Medicine/Occupational Environmental Medicine
DX: N17.9 Acute kidney failure, unspecified (principal); E43 Unspecified severe protein-calorie malnutrition; E87.0 Hyperosmolality and hypernatremia; Z68.1 Body mass index [BMI] 19.9 or less, adult; N13.8 Other obstructive and reflux uropathy; E83.52 Hypercalcemia; D64.9 Anemia, unspecified; I10 Essential (primary) hypertension; N40.1 Benign prostatic hyperplasia with lower urinary tract symptoms; R33.8 Other retention of urine; M50.30 Other cervical disc degeneration, unspecified cervical region; E83.39 Other disorders of phosphorus metabolism; E83.42 Hypomagnesemia; Z20.822 Contact with and (suspected) exposure to COVID-19; E87.6 Hypokalemia; E83.51 Hypocalcemia; R73.9 Hyperglycemia, unspecified; N28.1 Cyst of kidney, acquired; I44.1 Atrioventricular block, second degree; I48.91 Unspecified atrial fibrillation; Z79.899 Other long term (current) drug therapy
CPT/HCPCS: 36415; 70450-TC; 71045; 72125-TC; 76376; 76770; 80048; 80053; 80076; 81000; 82043; 82550; 82570; 82962; 83690; 83735; 83874; 83880; 83970; 84100; 84153; 84439; 84443; 84484; 84560; 85025; 85610-TC; 85651-TC; 85730-TC; 86140; 87040-TC; 87086; 93005; 96365; 96375; 97112-GP; 97116-GP; 97163; 97530-GP; 99285; G0378; J0696; J3475; J3480; J3490; J7050; J7120